=== PATIENT | male | born 1965 | race Caucasian/White ===

== ENCOUNTER 2020-06-14 19:32 | Emergency (ER) | payer BC, OTHER ==
[2020-06-14 19:42] VITALS: PULSE 90; TEMP 98.7; BMI 45.6
--- NOTE | 2020-06-14 19:53 | PDOC ---
History of Present Illness - General Stated Complaint: SWOLLEN LEFT LEG SINCE THE SUMMER Time Seen by Provider: 06/14/20 19:33 History Source: Patient Exam Limitations: No Limitations - History of Present Illness Initial Comments: 06/14/20 19:54 This is a 55-year-old male who comes in complaining of left leg swelling. Patient had Covid earlier this month and is concerned for a blood clot. Patient does have some chronic leg edema but it is worse now. Patient denies any chest pain shortness of breath or any other complaints. Patient went to an urgent care center and was sent sent here for an ultrasound Doppler. Allergies: as per nursing notes Past Medical History: none Social history: Lives with family. No smoking. No alcohol. No illicit drugs. Surgical history: None General: No fevers or chills, no weakness, no weight loss HEENT: No change in vision. No sore throat,. No ear pain CardioVascular: no chest discomfort. No shortness of breath Respiratory:No cough, or wheezing. Gastrointestinal: no nausea, vomiting, diarrhea or constipation, No rectal bleeding Genitourinary: No dysuria, hematuria, or frequency Musculoskeletal: No joint or muscle pain or swelling left lower extremity swelling Neurologic: No headache, vertigo, dizziness or loss of consciousness Psychiatric: nor depression Skin: No rashes or easy bruising Endocrine: no increased thirst or abnormal weight change Allergic: no skin or latex allergy All other systems reviewed and normal GENERAL: The patient is awake, alert, and fully oriented, in no acute distress. HEENT:Head is normal with no signs of trauma. Eyes: Pupils equal, round and reactive to light, Ears, and Throat are normal. Neck is supple. No Lymphadenopathy. EXTREMITIES:atraumatic, Normal range of motion, there is marked edema of the left lower extremity. There is moderate edema of the right lower extremity. There is no increase in warmth, erythema or tenderness on palpation. Neurovascular distally is intact. NEUROLOGICAL: Normal speech, normal gait. PSYCH: Normal mood, normal affect. SKIN: Warm, Dry, normal turgor, no rashes or lesions noted. 06/14/20 21:11 Ultrasound was negative for any DVT. Discharged with follow-up with his primary care doctor. Past History - Medical History Allergies/Adverse Reactions: Allergies Allergy/AdvReac Type Severity Reaction Status Date / Time No Known Allergies Allergy Verified 06/14/20 19:37 Home Medications: Ambulatory Orders Losartan Potassium 50 mg PO DAILY 06/14/20 Discharge - Discharge Information Problems reviewed: Yes Clinical Impression/Diagnosis: Lymphedema of both lower extremities Condition: Stable Disposition: HOME - Admission No - Follow up/Referral - Patient Discharge Instructions Additional Instructions: Primary care doctor and get an appointment to follow-up as you will likely need to be fitted for compression stockings. Return to the emergency department immediately with ANY new, persistent or worsening symptoms. Continue any medications as previously prescribed by your physician. You should follow up with your primary doctor as soon as possible regarding today's emergency department visit. . Please make sure your doctor reviews the results of your emergency evaluation. Thank you for coming to the Emergency Department today for your care. It was a pleasure to see you today. Please note that your evaluation is INCOMPLETE until you follow-up with your doctor. - Post Discharge Activity
[2020-06-14 20:35] VITALS: BP 145/98
== END 2020-06-14 21:19 | disposition home or self-care (01) ==
LOC: FER 19:32
DX: R60.9 Edema, unspecified (principal)
CPT/HCPCS: 93971-TC; 99284-25

== ENCOUNTER 2021-07-04 13:10 | Emergency (ER) | payer OTHER, BC ==
[2021-07-04] MEDS ORDERED: LIDOCAINE 5% TOPICAL PATCH TP ONE (13:29)
[2021-07-04] MEDS ORDERED: METHOCARBAMOL 500 MG TABLET PO ONE (13:29)
[2021-07-04] MEDS ORDERED: KETOROLAC TROMETHAMINE 30 MG/1 ML VIAL IM ONE (13:29)
[2021-07-04] MEDS ORDERED: ACETAMINOPHEN 500 MG TABLET (FP) PO ONE (13:29)
[2021-07-04 13:39] VITALS: BP 155/89; PULSE 77; TEMP 98; BMI 46.2
[2021-07-04] MEDS ORDERED: METHOCARBAMOL 500 MG TABLET ONE (13:41)
[2021-07-04] MEDS ORDERED: LIDOCAINE 5% TOPICAL PATCH ONE (13:41)
[2021-07-04] MEDS ORDERED: ACETAMINOPHEN 500 MG TABLET (FP) ONE (13:41)
[2021-07-04] MEDS ORDERED: KETOROLAC TROMETHAMINE 30 MG/1 ML VIAL ONE (13:41)
[2021-07-04] MEDS ORDERED: LIDOCAINE PATCH REMOVAL MC SCH (22:00)
== END 2021-07-04 16:03 | disposition home or self-care (01) ==
LOC: FER 13:10
PROC: 3E0233Z Introduction of Anti-inflammatory into Muscle, Percutaneous Approach (ICD-10-PCS; principal; 2021-07-04)
DX: M79.10 Myalgia, unspecified site (principal)
CPT/HCPCS: 99284-25